=== PATIENT | female | born 1995 | race African-American/Black ===

== ENCOUNTER 2016-12-22 17:30 | Emergency (ER) | payer MEDICAID, OTHER ==
[~2016-12-22] VITALS: Ht 162.6 cm; Wt 55.0 kg
[~2016-12-22 17:30] MED LIST: IBUP600T26 PO; LORTA5 PO
[2016-12-22 17:35] VITALS: BP 135/80; PULSE 95; RESP 15; TEMP 98; O2SAT 98
[2016-12-22] MEDS ORDERED: SODIUM CHLOR 0.9% 1000 ML INJ 1,000 ML IV ONE (17:53)
[2016-12-22 17:57] VITALS: O2SAT 100
--- NOTE | 2016-12-22 17:58 | PD ---
HPI Chief Complaint: Syncope/Near-Syncope Time Seen by Provider: 17:54 Travel History International Travel<30 days: No Contact w/Intl Traveler<30days: No Traveled to known affect area: No History of Present Illness HPI 21-year-old female presents to the emergency department for evaluation of possible syncopal episode versus seizure activity. Patient states she was at a friend's house. She was unsure if she was sitting or standing, but She knew she was lying on the ground with her friends around her. Her girlfriend who is at bedside, states that she had shaking of the arms and legs during this event. However, she had no incontinence and did not bite her tongue. The patient states she feels fatigued at this time. She complains of a headache 8/. She denies any chest pain or shortness of breath. No abdominal pain. No vomiting. She denies any chance of . She denies any chronic medical problems or take any medications. She does admit to intermittent, last time this morning marijuana use. Patient denies any history of seizure activity. PFSH Past Medical History Asthma: No Autoimmune Disease: No Anxiety: No Depression: No Cardiovascular Problems: No Cystic Fibrosis: No Musculoskeletal: No Neurologic: No Psychiatric: No Respiratory: No Sleep Apnea: No ?: Not LMP: 12/18/2016 Social History Alcohol Use: No Tobacco Use: Yes Substance Use: Yes (EUGENIO) Allergies-Medications (Allergen,Severity, Reaction): Coded Allergies: No Known Allergies (Unverified , 12/22/16) Reported Meds & Prescriptions Reported Meds & Active Scripts Active No Active Prescriptions or Reported Medications Review of Systems Except as stated in HPI: all other systems reviewed are Neg Physical Exam Narrative GENERAL: Well-developed well-nourished female patient, afebrile. SKIN: Warm and dry. HEAD: Normocephalic. Atraumatic. EYES: No scleral icterus. No injection or drainage. PERRLA. EOM intact. ENT: Mucosa pink and moist. No erythema or exudates. No uvular edema. No uvular , palatal, or tonsillar deviation. Airway patent. Nasal turbinates appear normal without nasal blood, purulent drainage or septal hematoma. Bilateral tympanic membranes are clear without erythema or perforation. NECK: Supple, trachea midline. No JVD or lymphadenopathy. CARDIOVASCULAR: Regular rate and rhythm without murmurs, gallops, or rubs. RESPIRATORY: Breath sounds equal bilaterally. No accessory muscle use. Lungs sounds are clear to auscultation. GASTROINTESTINAL: Abdomen soft, non-tender, nondistended. MUSCULOSKELETAL: No cyanosis, or edema. BACK: Nontender without obvious deformity. No CVA tenderness. No midline spinal tenderness. NEUROLOGICAL: Awake and alert. Cranial nerves II through XII intact. Motor and sensory grossly within normal limits. Five out of 5 muscle strength in all muscle groups. Normal speech. Finger to nose is normal bilaterally. Heel-to- oneill is normal bilaterally. Data Data Last Documented VS Vital Signs Date Time Temp Pulse Resp B/P Pulse Ox O2 Delivery O2 Flow Rate FiO2 12/22/16 17:57 100 Room Air 12/22/16 17:35 98.0 95 15 135/80 Orders Complete Blood Count With Diff (12/22/16 17:53) Basic Metabolic Panel (Bmp) (12/22/16 17:53) Drug Screen, Random Urine (12/22/16 17:53) Electrocardiogram (12/22/16 ) Ct Brain W/O Iv Contrast(Rout) (12/22/16 ) Blood Glucose (12/22/16 17:53) Ecg Monitoring (12/22/16 17:53) Iv Access Insert/Monitor (12/22/16 17:53) Oximetry (12/22/16 17:53) Sodium Chlor 0.9% 1000 Ml Inj (Ns 1000 M (12/22/16 17:53) Sodium Chloride 0.9% Flush (Ns Flush) (12/22/16 18:00) Urinalysis - C+S If Indicated (12/22/16 17:53) Ed Urine Pregnancytest Poc (12/22/16 17:53) Labs Laboratory Tests Test 12/22/16 12/22/16 18:00 19:00 White Blood Count 9.4 TH/MM3 Red Blood Count 5.07 MIL/MM3 Hemoglobin 10.9 GM/DL Hematocrit 35.2 % Mean Corpuscular Volume 69.4 FL Mean Corpuscular Hemoglobin 21.5 PG Mean Corpuscular Hemoglobin 31.0 % Concent Red Cell Distribution Width 20.3 % Platelet Count 386 TH/MM3 Mean Platelet Volume 8.4 FL Neutrophils (%) (Auto) 48.3 % Lymphocytes (%) (Auto) 40.3 % Monocytes (%) (Auto) 8.2 % Eosinophils (%) (Auto) 2.5 % Basophils (%) (Auto) 0.7 % Neutrophils # (Auto) 4.5 TH/MM3 Lymphocytes # (Auto) 3.8 TH/MM3 Monocytes # (Auto) 0.8 TH/MM3 Eosinophils # (Auto) 0.2 TH/MM3 Basophils # (Auto) 0.1 TH/MM3 CBC Comment AUTO DIFF Differential Comment AUTO DIFF CONFIRMED Platelet Estimate NORMAL Platelet Morphology Comment NORMAL Sodium Level 139 MEQ/L Potassium Level 3.8 MEQ/L Chloride Level 105 MEQ/L Carbon Dioxide Level 24.5 MEQ/L Anion Gap 10 MEQ/L Blood Urea Nitrogen 11 MG/DL Creatinine 0.98 MG/DL Estimat Glomerular Filtration 88 ML/MIN Rate Random Glucose 84 MG/DL Calcium Level 9.5 MG/DL Urine Color YELLOW Urine Turbidity CLEAR Urine pH 6.5 Urine Specific [place] 1.022 Urine Protein 30 mg/dL Urine Glucose (UA) NEG mg/dL Urine Ketones NEG mg/dL Urine Occult Blood NEG Urine Nitrite NEG Urine Bilirubin NEG Urine Urobilinogen LESS THAN 2.0 MG/DL Urine Leukocyte Esterase TRACE Urine RBC 1 /hpf Urine WBC 2 /hpf Urine Squamous Epithelial 1 /hpf Cells Urine Mucus FEW /lpf Microscopic Urinalysis Comment CULT NOT INDICATED Urine Opiates Screen NEG Urine Barbiturates Screen NEG Urine Amphetamines Screen NEG Urine Benzodiazepines Screen NEG Urine Cocaine Screen NEG Urine Cannabinoids Screen POS [facility] Medical Decision Making Medical Screen Exam Complete: Yes Emergency Medical Condition: Yes Medical Record Reviewed: Yes Interpretation(s) CT brain - CONCLUSION: Normal examination for a patient of this age. Differential Diagnosis Electrolyte abnormality versus intracranial abnormality versus dehydration versus vasovagal versus seizure cardiac arrhythmia Narrative Course 21-year-old female presents to the emergency department for evaluation after possible syncope versus seizure just prior to arrival. CBC, BMP, UDS, UA, urine test are ordered and pending. EKG is ordered and pending. CT of the brain is ordered and pending. EKG shows SR, HR 66, no acute ST changes. CBC shows no acute abnormalities. BMP shows no acute abnormalities. UA shows no evidence of acute infection. UDS is positive for cannabinoids. UPT is negative. CT of the brain is normal. Patient is stable for discharge to follow-up with her primary care physician. She is return for any acute worsening of symptoms. Patient is agreeable to this plan. The patient was discharged in stable condition with instructions, including return instructions and follow up instructions. Diagnosis Primary Impression: Seizure Referrals: Primary Care Physician call for appointment Patient Instructions: General Instructions, New-Onset Seizure in Adults (ED), Syncope (ED) Departure Forms: Tests/Procedures, Work Release Enter return to work date: Dec 24, 2016 Additional Instructions: Follow-up with your primary care physician. Return to the emergency department for any acute worsening of symptoms. Med/Other Pt SpecificInfo: No Change to Meds Scripts No Active Prescriptions or Reported Meds Disposition: DISCHARGE HOME Condition: Stable Nilo Shannonargentina ROSARIO Dec 22, 2016 17:58
[2016-12-22] MEDS ORDERED: SODIUM CHLORIDE 0.9% FLUSH 5 ML FLUSH IVF PRN (18:00)
[2016-12-22 18:13] LABS: AUTOMATED NEUTROPHIL # 4.5 TH/MM3 (1.8-7.7); BASOPHIL # 0.1 TH/MM3 (0-0.2); BASOPHIL % 0.7 % (0.0-2.0); EOSINOPHIL # 0.2 TH/MM3 (0-0.4); EOSINOPHIL % 2.5 % (0.0-4.0); HEMATOCRIT 35.2 % (35.0-46.0); LYMPH % 40.3 % (9.0-44.0); LYMPHOCYTE # 3.8 TH/MM3 (1.0-4.8); MEAN CELL VOLUME 69.4 FL (80.0-100.0); MEAN CORPUSCULAR HEMOGLOBIN 21.5 PG (27.0-34.0); MONO % 8.2 % (0.0-8.0); NEUT % 48.3 % (16.0-70.0); PLATELET COUNT 386 TH/MM3 (150-450); RED BLOOD COUNT 5.07 MIL/MM3 (4.00-5.30); RED CELL DISTRIBUTION WIDTH 20.3 % (11.6-17.2); WHITE BLOOD COUNT 9.4 TH/MM3 (4.0-11.0)
[2016-12-22 18:14] LABS: HEMO FLAGS AUTO DIFF
[2016-12-22 18:36] LABS: BICARBONATE 24.5 MEQ/L (21.0-32.0); POTASSIUM 3.8 MEQ/L (3.5-5.1)
[2016-12-22 18:46] LABS: PLATELET ESTIMATE SMEAR NORMAL (NORMAL); PLATELET MORPHOLOGY NORMAL (NORMAL); SCAN/DIFF AUTO DIFF CONFIRMED
[2016-12-22 19:33] LABS: AMPHETAMINE, URINE NEG (NEG); BARBITURATES, URINE NEG (NEG); COCAINE, URINE NEG (NEG)
[2016-12-22 19:34] LABS: BLOOD, URINE NEG (NEG); COMMENT (UR) CULT NOT INDICATED; CULTURE IF INDICATED CULT NOT INDICATED; GLUCOSE,URINE NEG (NEG); KETONE, URINE NEG (NEG); MUCUS URINE FEW /lpf (OCC); NITRITE,URINE NEG (NEG); PH, URINE 6.5 (5.0-8.5); SQUAMOUS EPITHELIAL CELL URINE 1 /hpf (0-5); URINE COLOR YELLOW (YELLW/STRAW)
--- NOTE | 2016-12-22 20:23 | RADRPT ---
EXAM DATE/TIME: 12/22/2016 19:08 [facility] COMPARISON: No previous studies available for comparison. INDICATIONS : Syncope and possible seizure. RADIATION DOSE: 56.77 CTDIvol (mGy) MEDICAL HISTORY : None SURGICAL HISTORY : None. ENCOUNTER: Initial ACUITY: 1 day PAIN SCALE: 2/10 LOCATION: cranial TECHNIQUE: Multiple contiguous axial images were obtained of the head. Using automated exposure control and adj ustment of the mA and/or kV according to patient size, radiation dose was kept as low as reasonably a chievable to obtain optimal diagnostic quality images. FINDINGS: CEREBRUM: The ventricles are normal for age. No evidence of midline shift, mass lesion, hemorrhage or acute in farction. No extra-axial fluid collections are seen. POSTERIOR FOSSA: The cerebellum and brainstem are intact. The 4th ventricle is midline. The cerebellopontine angle i s unremarkable. EXTRACRANIAL: The visualized portion of the orbits is intact. SKULL: The calvaria is intact. No evidence of skull fracture. CONCLUSION: Normal examination for a patient of this age. Mando Morales MD on December 22, 2016 at 20:20 Board Certified Radiologist. This report was verified electronically.
--- NOTE | 2016-12-23 12:29 | EKG ---
Date Performed: 12/22/2016 Time Performed: 18:08:36 PTAGE: 21 years EKG: Sinus rhythm Since previous tracing, no significant change noted NORMAL ECG PREVIOUS TRACING : 05/07/2015 09.55 DOCTOR: Gerda Dietrich Interpretating Date/Time 12/23/2016 12:27:34
== END 2016-12-22 20:54 | disposition home or self-care (01) ==
LOC: NEPC 17:30
DX: R56.9 Unspecified convulsions (principal); F12.90 Cannabis use, unspecified, uncomplicated
CPT/HCPCS: 70450; 80048; 80307; 81001; 84703; 85025; 93005; 96360; 99284; J7030